=== PATIENT | female | born 1980 | race African-American/Black ===

== ENCOUNTER 2023-11-15 16:29 | Emergency (ER) | payer BC, MEDICAID ==
[~2023-11-15] VITALS: Ht 160 cm; Wt 110.7 kg
[2023-11-15 17:20] VITALS: BP_SYST 136; PULSE 77; RESP 18; TEMP 98.2; O2SAT 96
[2023-11-15] MEDS ORDERED: IBUP-1971 PO (20:59)
[2023-11-15] MEDS ORDERED: TRAM50TA2 PO (20:59)
[2023-11-15] MEDS: IBUPROFEN 800 MG TABLET PO ONE (21:11)
[2023-11-15] MEDS: HYDROcodone/ACETAMIN 10-325 MG TAB PO ONE (21:11)
[2023-11-15 21:16] VITALS: BP_SYST 136; PULSE 77; RESP 18; TEMP 98.2; O2SAT 96
== END 2023-11-15 21:16 | disposition home or self-care (01) ==
LOC: SED 16:29
DX: S83.8X2A Sprain of other specified parts of left knee, initial encounter (principal); I10 Essential (primary) hypertension; Z98.890 Other specified postprocedural states; Z79.899 Other long term (current) drug therapy; W22.8XXA Striking against or struck by other objects, initial encounter; Y93.89 Activity, other specified; Y92.89 Other specified places as the place of occurrence of the external cause; Y99.8 Other external cause status
CPT/HCPCS: 73564; 99283